=== PATIENT | male | born 1995 | race Two or more races ===

== ENCOUNTER 2025-02-05 18:02 | Emergency (ER) | payer OTHER ==
[~2025-02-05] VITALS: Ht 170.2 cm; Wt 84.8 kg
== END 2025-02-05 21:38 | disposition home or self-care (01) ==
LOC: ER 18:02
DX: S60.212A Contusion of left wrist, initial encounter (principal); W18.39XA Other fall on same level, initial encounter; Y93.66 Activity, soccer; Y92.89 Other specified places as the place of occurrence of the external cause; Y99.9 Unspecified external cause status